=== PATIENT | female | born 1960 | race Caucasian/White ===

== ENCOUNTER 2017-01-02 07:33 | Day surgery (SDC) | payer OTHER ==
[~2017-01-02] VITALS: Ht 161.3 cm; Wt 56.8 kg
[2017-01-02] MEDS ORDERED: SODIUM CHLORIDE 0.9% 1,000 ML IV ONE ×2 (08:02→08:30)
[2017-01-02] MEDS ORDERED: CeFAZolin 1 GM/DEXTROSE 0 ML IV ONE (08:08)
[2017-01-02] MEDS ORDERED: NALT50 PO (08:15)
[2017-01-02 08:29] LABS: PROTHROMBIN TIME 10.6 SEC (9.4-11.6)
[2017-01-02] MEDS ORDERED: LORazepam 2 MG/ML VIAL IVP ONE (08:30)
[2017-01-02] MEDS ORDERED: CeFAZolin 1 GM/DEXTROSE 50 ML IV ONE ×2 (08:30→12:14)
[2017-01-02] MEDS ORDERED: FentaNYL CITRATE-PF 100 MCG/2 ML VIAL ONE ×2 (12:50→13:47)
[2017-01-02] MEDS ORDERED: MIDAZOLAM HCL 2 MG/2 ML VIAL ONE ×2 (12:50→13:47)
[2017-01-02] MEDS ORDERED: LIDOCAINE HCL/PF 1% 5 ML VIAL ONE (12:51)
[2017-01-02] MEDS ORDERED: MIDAZOLAM HCL 2 MG/2 ML VIAL IVP ONE (13:12)
[2017-01-02] MEDS ORDERED: FentaNYL CITRATE-PF 100 MCG/2 ML VIAL IVP ONE (13:50)
[2017-01-02] MEDS ORDERED: OxyCODONE HCL/ACETAMINOPHEN 5-325 MG TABLET PO PRN (14:30)
== END 2017-01-02 15:40 | disposition home or self-care (01) ==
LOC: SDS 07:33 → EDSTATUS 10:00 → SDS 15:40
PROVIDERS: ATTEND Radiology Diagnostic Radiology
DX: N63 Unspecified lump in breast (principal); R22.9 Localized swelling, mass and lump, unspecified
CPT/HCPCS: 17110; 19105; 36415; 85049; 85610; C2618; J0690; J2250; J3010; J3490; J7030